=== PATIENT | female | born 1955 | race Caucasian/White ===

== ENCOUNTER → 2017-02-12 | Outpatient (CLI) | payer OTHER ==
[~2017-02-12] MED LIST: ALL DAY ALLERGY10 M3 PO; ASPIR 8181 MG PO; BUPROPION HCL150 M1 PO; IRON160 MG PO; JANUMET XR 1001 EACH PO; JARDIANCE25 MG PO; LOSARTAN POTASS50 MG PO; METOPROLOL TART50 MG PO; OMEPRAZOLE40 MG PO; OXYBUTYNIN CHLO10 MG PO; PERCOCET 10-321 EACH PO; PREVACID30 MG PO; SIMVASTATIN40 MG PO; TRAMADOL HCL50 MG PO; VITAMIN D 11000 UNIT PO; XARELTO10 MG PO; ZYRTEC10 MG PO
[2017-02-12 09:15] LABS: HEMOGLOBIN 14.8 gm/dl (12.3-15.3); RED BLOOD COUNT 5.4 M/UL (4.00-5.10); WHITE BLOOD COUNT 8.8 K/UL (4.5-11.0)
== END ==
LOC: OPSV2 07:53
PROVIDERS: Orthopaedic Surgery
DX: Z01.812 Encounter for preprocedural laboratory examination (principal); Z01.810 Encounter for preprocedural cardiovascular examination; E11.9 Type 2 diabetes mellitus without complications; M16.11 Unilateral primary osteoarthritis, right hip
CPT/HCPCS: 36415; 80048; 81001; 83036; 85025; 87077; 87081; 87086; 87186; 93005

== ENCOUNTER → 2017-02-25 | Outpatient (CLI) | payer OTHER | LOC: LAB 13:06 | DX: M16.11 Unilateral primary osteoarthritis, right hip (principal) | CPT/HCPCS: 36415; 80051; 82565; 84520; 86850; 86900; 86901 ==

== ENCOUNTER 2017-02-26 08:15 | Inpatient (IN) | payer OTHER ==
[~2017-02-26] VITALS: Ht 152.4 cm; Wt 125.2 kg
[~2017-02-26 08:15] MED LIST changes: -ALL DAY ALLERGY10 M3 PO; -ASPIR 8181 MG PO; -BUPROPION HCL150 M1 PO; -IRON160 MG PO; -JANUMET XR 1001 EACH PO; -JARDIANCE25 MG PO; -LOSARTAN POTASS50 MG PO; -METOPROLOL TART50 MG PO; -OMEPRAZOLE40 MG PO; -OXYBUTYNIN CHLO10 MG PO; -PERCOCET 10-321 EACH PO; -PREVACID30 MG PO; -SIMVASTATIN40 MG PO; -TRAMADOL HCL50 MG PO; -VITAMIN D 11000 UNIT PO; -XARELTO10 MG PO
[2017-02-26] MEDS ORDERED: TRAMADOL HCL50 MG PO (12:07)
[2017-02-26] MEDS ORDERED: METOPROLOL TART50 MG PO (12:09)
[2017-02-26] MEDS ORDERED: BUPROPION HCL150 M1 PO (12:09)
[2017-02-26] MEDS ORDERED: JANUMET XR 1001 EACH PO (12:09)
[2017-02-26] MEDS ORDERED: OMEPRAZOLE40 MG PO (12:10)
[2017-02-26] MEDS ORDERED: ASPIR 8181 MG PO (12:10)
[2017-02-26] MEDS ORDERED: IRON160 MG PO (12:11)
[2017-02-26] MEDS ORDERED: ALL DAY ALLERGY10 M3 PO (12:12)
[2017-02-26] MEDS ORDERED: OXYBUTYNIN CHLO10 MG PO (12:13)
[2017-02-26] MEDS ORDERED: SIMVASTATIN40 MG PO (12:13)
[2017-02-26] MEDS ORDERED: PREVACID30 MG PO (12:14)
[2017-02-26] MEDS ORDERED: VITAMIN D 11000 UNIT PO (12:14)
[2017-02-26] MEDS ORDERED: JARDIANCE25 MG PO (12:18)
[2017-02-26] MEDS ORDERED: LOSARTAN POTASS50 MG PO (12:19)
[2017-02-27 06:04] LABS: HEMOGLOBIN 10.8 gm/dl (12.3-15.3); RED BLOOD COUNT 4.09 M/UL (4.00-5.10); WHITE BLOOD COUNT 9.3 K/UL (4.5-11.0)
[2017-02-28 05:50] LABS: HEMOGLOBIN 10.8 gm/dl (12.3-15.3); RED BLOOD COUNT 4.06 M/UL (4.00-5.10)
[2017-02-28 06:01] LABS: WHITE BLOOD COUNT 11.7 K/UL (4.5-11.0)
[2017-02-28 06:07] LABS: BUN/CREATININE RATIO 21 (0-10)
[2017-03-01 06:03] LABS: HEMOGLOBIN 10.7 gm/dl (12.3-15.3); RED BLOOD COUNT 4.04 M/UL (4.00-5.10); WHITE BLOOD COUNT 9.6 K/UL (4.5-11.0)
[2017-03-01] MEDS ORDERED: XARELTO10 MG PO (10:35)
[2017-03-01] MEDS ORDERED: PERCOCET 10-321 EACH PO (10:36)
== END 2017-03-01 12:18 | disposition home or self-care (01) | DRG 470 ==
LOC: ZOBSOF 10:46 → M/S 18:25
PROVIDERS: ADMIT Orthopaedic Surgery
PROC: 0SR902A Replacement of Right Hip Joint with Metal on Polyethylene Synthetic Substitute, Uncemented, Open Approach (ICD-10-PCS; principal; 2017-02-26 15:45)
PROC: BQ101ZZ Fluoroscopy of Right Hip using Low Osmolar Contrast (ICD-10-PCS; principal; 2017-02-26 15:45)
DX: M16.11 Unilateral primary osteoarthritis, right hip (principal); Z68.41 Body mass index [BMI] 40.0-44.9, adult; E11.9 Type 2 diabetes mellitus without complications; Z79.84 Long term (current) use of oral hypoglycemic drugs; I10 Essential (primary) hypertension; E78.5 Hyperlipidemia, unspecified; Z87.891 Personal history of nicotine dependence; M25.751 Osteophyte, right hip; E66.01 Morbid (severe) obesity due to excess calories
CPT/HCPCS: 36415; 73501; 76000; 80048; 82962; 85025; 97110; 97116; 97530; 97535; C1776; J0690; J1100; J1644; J2250; J2370; J2405; J2710; J2795; J3010; J3370; J7030; J7050; J7120

== ENCOUNTER → 2021-02-09 | Outpatient (CLI) | payer OTHER ==
[~2021-02-09] MED LIST changes: +ALL DAY ALLERGY10 M3 PO; +ASPIR 8181 MG PO; +ATIVAN1 MG PO; +BACLOFEN10 MG PO; +BREO ELLIPTA 11 EACH INH; +BUPROPION HCL150 M1 PO; +CARTIA XT120 MG PO; +CLOPIDOGREL75 MG PO; +COZAAR50 MG PO; +CREON DR 24,001 EACH PO; +DEXILANT60 MG PO; +DITROPAN 5 MG TA5 MG PO; +ELIQUIS 2.5 MG2.5 MG PO; +HYDROCHLOROTHIA25 MG PO; +IMDUR ER TAB 3030 MG PO; +IRON160 MG PO; +JANUMET XR 1001 EACH PO; +LOPRESSOR 50 MG50 MG PO; +LOSARTAN POTASS50 MG PO; +MACROBID 100 M100 MG PO; +METOPROLOL TART50 MG PO; +MIRAPEX1 MG PO; +NORCO 5-325 TA1 EACH PO; +OMEPRAZOLE40 MG PO; +OXYBUTYNIN CHLO10 MG PO; +PERCOCET 10-321 EACH PO; +PREVACID30 MG PO; +SIMVASTATIN40 MG PO; +SOLIQUA 100 UNIT3 ML SQ; +TRAMADOL HCL50 MG PO; +TRIMETHOPRIM100 MG PO; +VICTOZA 1818 MG/3 ML SC; +VITAMIN B-12 PO; +VITAMIN D 11000 UNIT PO; +XARELTO10 MG PO; +ZOFRAN ODT 4 MG4 MG PO
[2021-02-09 10:57] LABS: RED BLOOD COUNT 4.96 M/UL (4.00-5.10); WHITE BLOOD COUNT 6.5 K/UL (4.5-11.0)
[2021-02-09 11:21] LABS: BUN/CREATININE RATIO 20 (0-10)
== END ==
LOC: LAB 10:02
PROVIDERS: Internal Medicine Interventional Cardiology
DX: I10 Essential (primary) hypertension (principal); I25.119 Atherosclerotic heart disease of native coronary artery with unspecified angina pectoris; R06.02 Shortness of breath
CPT/HCPCS: 36415; 80048; 85025; 85610; 85730; 93005

== ENCOUNTER → 2021-02-13 | Outpatient (CLI) | payer MEDICARE | LOC: CATH 09:22 | DX: I25.118 Atherosclerotic heart disease of native coronary artery with other forms of angina pectoris (principal); I25.84 Coronary atherosclerosis due to calcified coronary lesion; I10 Essential (primary) hypertension; E78.5 Hyperlipidemia, unspecified; E11.9 Type 2 diabetes mellitus without complications; Z79.4 Long term (current) use of insulin; Z79.82 Long term (current) use of aspirin; Z87.891 Personal history of nicotine dependence; Z82.49 Family history of ischemic heart disease and other diseases of the circulatory system; Z79.899 Other long term (current) drug therapy | CPT/HCPCS: 82962; 85347; 93005; 99152; 99153; C1725; C1769; C1887; C1894; J0153; J0461; J1644; J2250; J3010; J7030; Q9967 ==

== ENCOUNTER → 2021-08-28 | Outpatient (CLI) | payer MEDICARE, OTHER | LOC: HEART CORB 09:21 | DX: I25.10 Atherosclerotic heart disease of native coronary artery without angina pectoris (principal); R07.2 Precordial pain; R94.39 Abnormal result of other cardiovascular function study | CPT/HCPCS: 78452; A9502; J2785 ==